=== PATIENT | female | born 1995 | race Caucasian/White ===

== ENCOUNTER 2021-12-31 06:27 | Emergency (ER) | payer OTHER ==
[~2021-12-31] VITALS: Ht 167.6 cm; Wt 56.8 kg
[2021-12-31] MEDS ORDERED: ADDE20CA3 PO (06:40)
[2021-12-31] MEDS ORDERED: CYMB1CAP5 PO (06:40)
[2021-12-31 08:58] LABS: HEMATOCRIT 40.3 % (36.0-47.0); HEMOGLOBIN 13.5 g/dl (12.0-15.5); MEAN CORPUSCULAR HEMOGLOBIN 29.7 pg (27.0-33.0); MEAN CORPUSCULAR HGB CONC 33.5 g/dl (32.0-36.5); MEAN CORPUSCULAR VOLUME 88.8 fl (80.0-96.0); PLATELET COUNT, AUTOMATED 335 10^3/uL (150-450); RED BLOOD COUNT 4.54 10^6/uL (4.00-5.40); WHITE BLOOD COUNT 6.5 10^3/uL (4.0-10.0)
[2021-12-31 09:17] LABS: RSV AMPLIFICATION NEGATIVE (NEGATIVE)
[2021-12-31 09:20] LABS: HCG, SERUM QUALITATIVE NEGATIVE (NEGATIVE)
[2021-12-31 09:42] LABS: AMPHETAMINES LEVEL URINE POSITIVE (NEGATIVE); BARBITURATES URINE NEGATIVE (NEGATIVE); BENZODIAZEPINES URINE NEGATIVE (NEGATIVE); CANNABINOIDS URINE POSITIVE (NEGATIVE); COCAINE METABOLITE URINE NEGATIVE (NEGATIVE); METHADONE URINE NEGATIVE (NEGATIVE); OPIATES URINE NEGATIVE (NEGATIVE); PHENCYCLIDINE URINE NEGATIVE (NEGATIVE)
[2021-12-31 09:43] LABS: ACETAMINOPHEN LEVEL < 2.0 UG/ML (10.0-30.0); ALBUMIN 4.2 GM/DL (3.2-5.2); ALT/SGPT 19 U/L (12-78); BILIRUBIN,DIRECT 0.2 MG/DL (0.0-0.2); BILIRUBIN,TOTAL 0.5 MG/DL (0.2-1.0); BLOOD UREA NITROGEN 6 MG/DL (7-18); CALCIUM LEVEL 9.6 MG/DL (8.5-10.1); CARBON DIOXIDE LEVEL 27 MEQ/L (21-32); CHLORIDE LEVEL 106 MEQ/L (98-107); CREATININE FOR GFR 0.82 MG/DL (0.55-1.30); ETHYL ALCOHOL (ETHANOL) 0.003 % (0.000-0.010); GLOMERULAR FILTRATION RATE > 60.0 (>60); GLUCOSE, FASTING 111 MG/DL (70-100); POTASSIUM SERUM 3.5 MEQ/L (3.5-5.1); SALICYLATE LEVEL < 1.7 MG/DL (5.0-30.0); SODIUM LEVEL 139 MEQ/L (136-145); TOTAL PROTEIN 7.7 GM/DL (6.4-8.2)
[2021-12-31] MEDS ORDERED: ALPRAZolam 0.5 MG TAB PO ONE (11:05)
[2021-12-31] MEDS ORDERED: ADDE10TA PO (14:52)
[2021-12-31] MEDS ORDERED: HOME MED LIST COMPLETE! XX SCH (14:55)
[2021-12-31] MEDS ORDERED: HYDR-3363 PO (15:29)
[2021-12-31 15:58] VITALS: BP 113/74
== END 2021-12-31 16:09 | disposition home or self-care (01) ==
LOC: M ED 06:27
DX: F32.A Depression, unspecified (principal); F41.9 Anxiety disorder, unspecified; R11.0 Nausea; R19.7 Diarrhea, unspecified; F90.9 Attention-deficit hyperactivity disorder, unspecified type; Z79.899 Other long term (current) drug therapy